=== PATIENT | female | born 1995 | race Caucasian/White ===

== ENCOUNTER 2022-01-08 09:53 | Outpatient (CLI) | payer BC | END 2022-01-08 09:54 | disposition home or self-care (01) | LOC: BICULT 09:53 | PROVIDERS: ATTEND Emergency Medicine | DX: N63.20 Unspecified lump in the left breast, unspecified quadrant (principal) ==

== ENCOUNTER 2022-10-23 13:59 | Outpatient (CLI) | payer BC | END 2022-10-23 14:00 | disposition home or self-care (01) | LOC: BICULT 13:59 | PROVIDERS: ATTEND Obstetrics & Gynecology | DX: N60.12 Diffuse cystic mastopathy of left breast (principal) ==